=== PATIENT | female | born 1950 | race Caucasian/White ===

== ENCOUNTER 2019-02-27 07:25 | Emergency (ER) | payer MEDICARE, BC ==
--- OUTSIDE RECORDS SUMMARY | 2019-02-27 07:38 | XMS REPORT | Continuity of Care Document ---
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 Benign essential hypertension Corina Jones MD Onset: 11/13/2014 Generalized anxiety disorder Corina Jones MD Onset: 12/13/2014 Hypertensive heart disease without congestive Corina Jones MD Onset: 01/24 heart failure Mixed hyperlipidemia Corina Jones MD Onset: 01/24/2015 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: 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/2015 oropharynx Impacted cerumen Corina Jones MD Onset: 11/28/2015 Psoriasis Corina Jones MD Onset: 11/28/2015 Epigastric pain Corina Jones MD Onset: 07/17/2016 Osteoporosis Corina Jones MD Onset: 02/01/2018 Social History Type Date Description Comments Sex Unknown Tobacco Use Start: Unknown Never Smoked Cigarettes Smoking Status Reviewed: 01/13/19 Never Smoked Cigarettes ETOH Use Occasionally consumes alcohol 4 dr/mo Tobacco Use Start: Unknown Patient has never smoked Allergies, Adverse Reactions, Alerts Description No Known Drug Allergies Medications Active Medications SIG Qnty Indications Ordering Date Provider Triamterene/Hydrochl Take 1 Tablet By 90Tablet Corina Jones, 09/24/2018 orothiazide Mouth Every MD 37.5-25mg Morning Tablets Synthroid Take 1 Tablet By 90Tablet Corina Jones, 09/24/2018 88mcg Mouth Every MD Tablets Morning , 1 Hour Prior To Eating Clobetasol apply small 30gm L40.9 Corina Jones, 02/01/2018 Propionate Emollient amount to MD affected area(s) 0.05% Cream at bedtime as needed Crestor take 1 tablet 12tabs I11.9 Corina Jones, 01/24/2015 10mg Tablets every ana at MD bedtime Fosinopril Sodium Take 1 Tablet By 135tabs Corina Jones, 11/13/2014 Mouth Every Day MD 40mg Tablets In The Morning Immunizations CPT Code Status Date Vaccine Lot # [id number] Given 02/01/2018 Tdap injection [id number] Given 07/08/2007 Tdap injection [id number] Given 09/08/1996 Tetnus Injection Vital Signs Date Vital Result Comment 01/13/2019 10:53am BP Systolic Sitting Left Arm 156 mmHg BP Diastolic Sitting Left Arm 92 mmHg Body Temperature 98.7 F Heart Rate 112 /min Respiratory Rate 18 /min Height 57.5 inches 4'9.50" Weight 132.00 lb BMI (Body Mass Index) 28.1 kg/m2 BSA (Body Surface Area) 1.52 m2 [place] body weight in kilograms 45 kg 08/02/2018 8:27am BP Systolic 146 mmHg BP Diastolic 82 mmHg Body Temperature 98.1 F Heart Rate 93 /min Respiratory Rate 18 /min Height 57.5 inches 4'9.50" Weight 134.00 lb BMI (Body Mass Index) 28.5 kg/m2 BSA (Body Surface Area) 1.53 m2 [place] body weight in kilograms 45 kg O2 % BldC Oximetry 99 % Results Test Date Facility Test Result H/L Range Note TSH Reflex 07/28/2018 [facility] Thyroid Stim 0.85 uIU/mL Normal 0.30-4.20 1 FT4 And/Or [address] Hormone FT3 [place] [address] [phone] Reflex add FT3? Y Reflex add FT4? Y 1 E03.9 Procedures Date Code Description Status 02/01/2018 059738436 Bone Mineral Density Test Completed 2017 [id number] Mammogram Completed 03/13/2015 [id number] Mammogram Completed 05/18/2013 00253514 Colonoscopy Completed Medical Devices Description No Information Available Encounters Type Date Location Provider Dx Diagnosis Office Visit 08/02/2018 [facility] Corina Jones, I11.9 Hypertensive heart 8:30a Luca RUSH MD disease without heart failure E03.9 Hypothyroidism, unspecified M81.0 Age-related osteoporosis w/o current pathological fracture K21.9 Gastro-esophageal reflux disease without esophagitis Assessments Date Code Description Provider 01/13/2019 Z01.419 Encounter for gynecological examination Corina Jones MD (general) (routine) without abnormal findings 01/13/2019 I11.9 Hypertensive heart disease without heart Corina Jones MD failure 08/02/2018 I11.9 Hypertensive heart disease without heart Corina Jones MD failure 08/02/2018 E03.9 Hypothyroidism, unspecified Corina Jones MD 08/02/2018 M81.0 Age-related osteoporosis without current Corina Jones MD pathological fractu 08/02/2018 K21.9 Gastro-esophageal reflux disease without Corina Jones MD esophagitis Plan of Treatment Future Appointment(s):07/01/2019 9:00 am - Corina Jones MD at [facility]01/13/2019 - Corina Jones MDZ01.419 Encounter for gynecological examination (general) (routine) without abnormal findingsComments: PAP AND PELVIC DONE: WE'RE ON A 5 YEAR PLAN.MAMMOGRAM DUE IN APRIL;YOUR ANNUAL WELLNESS VISIT WILL BE IN 6 MO, GET LABS DONE PRIOR.Follow up:6 MO: AWEI11.9 Hypertensive heart disease without heart failureComments:NO CHANGE IN MEDS;CHECK REGULARLY Functional Status Functional Condition Comment Date Status Glasses Active Mental Status Description No Information Available Referrals Description No Information Available
[2019-02-27 07:45] VITALS: BP 178/100
--- NOTE | 2019-02-27 08:08 | UC ---
Eye Complaint HPI - HPI Summary HPI Summary: 68-year-old woman comes in with a chief complaint of right eye irritation for a day. She noticed some dry skin on the lateral aspect of her right eye she put some Vaseline on it and when she woke up this morning she's having yellow crusting in her eye was crusted shut. No upper respiratory tract infection symptoms. No fevers no chills. No complaint of any vision changes. - History of Current Complaint Chief Complaint: UCEye Stated Complaint: RIGHT EYE IRRITATION Time Seen by Provider: 02/27/19 07:55 Pain Intensity: 0 - Allergies/Home Medications Allergies/Adverse Reactions: Allergies Allergy/AdvReac Type Severity Reaction Status Date / Time No Known Allergies Allergy Verified 02/27/19 07:45 Home Medications: Home Medications Fosinopril Sodium 40 mg PO DAILY 02/27/19 [History Confirmed 02/27/19] Hydrochlorothiazide TAB* [Hydrodiuril TAB*] 25 mg PO DAILY 02/27/19 [History Confirmed 02/27/19] Levothyroxine TAB* [Synthroid TAB*] 88 mcg PO DAILY 02/27/19 [History Confirmed 02/27/19] Rosuvastatin (NF) [Crestor (NF)] 10 mg PO WEEKLY 02/27/19 [History Confirmed ] PMH/Surg Hx/FS Hx/Imm Hx Previously Healthy: Yes Endocrine History: Hypothyroidism, Dyslipidemia Cardiovascular History: Hypertension - Surgical History Surgical History: Yes Surgery Procedure, Year, and Place: Neck dissection. oral surgery. R mastectomy - Family History Known Family History: Positive: Non-Contributory - Social History Alcohol Use: Occasionally Substance Use Type: None Smoking Status (MU): Never Smoked Tobacco Review of Systems All Other Systems Reviewed And Are Negative: Yes Constitutional: Positive: Negative Skin: Positive: Other - SEE HPI Eyes: Positive: Drainage, Eye Redness ENT: Positive: Negative Respiratory: Positive: Negative Cardiovascular: Positive: Negative Gastrointestinal: Positive: Negative Motor: Positive: Negative Neurovascular: Positive: Negative Musculoskeletal: Positive: Negative Neurological: Positive: Negative Psychological: Positive: Negative Is Patient Immunocompromised?: No Physical Exam Triage Information Reviewed: Yes Appearance: Well-Appearing, No Pain Distress, Well-Nourished Vital Signs: Initial Vital Signs Temp 98 F 02/27/19 07:41 Pulse 130 02/27/19 07:41 Resp 16 02/27/19 07:41 BP 178/100 02/27/19 07:41 Pulse Ox 100 02/27/19 07:41 Vital Signs Reviewed: Yes Eyes: Positive: Conjunctiva Inflamed, Discharge, Other: - On the lateral aspect of the right I there is inflamed and cracked skin with some flaking. ENT: Negative: Nasal congestion, Nasal drainage Neck: Positive: Supple Respiratory: Positive: No respiratory distress Musculoskeletal: Positive: ROM Intact Neurological: Positive: Alert, Muscle Tone Normal Psychological: Positive: Age Appropriate Behavior Skin: Positive: Other - On the lateral aspect of the right eye the skin is cracked and erythematous with some flaking Eye Complaint Course/Dx - Course Course Of Treatment: Patient has conjunctivitis and will treat that with tobramycin eyedrops. Also it appears to be potential skin yeast infection which we'll treat with Chlortrimazole. Follow-up if not completely improved or any other questions or concerns. - Differential Dx/Diagnosis Provider Diagnosis: Conjunctivitis, Candidal cheilitis Discharge ED - Sign-Out/Discharge Documenting (check all that apply): Patient Departure All imaging exams completed and their final reports reviewed: No Studies - Discharge Plan Condition: Stable Disposition: HOME Prescriptions: Clotrimazole 1% CREAM* [Clotrimazole 1%*] 1 applic TOPICAL BID #1 tube Tobramycin 0.3% OPHTH.GREG* 1 drop RIGHT EYE Q4H #1 btl Patient Education Materials: Skin Yeast Infection (ED), Conjunctivitis (ED) Referrals: Corina Jones MD [Primary Care Provider] - Additional Instructions: FOLLOW UP WITH YOUR DOCTOR IF NOT COMPLETELY IMPROVED. Use the tobramycin drops in the eye for conjunctivitis. Usually Chlortrimazole on the skin surrounding the eye for possible skin yeast infection. GET REEVALUATED SOONER IF NOT IMPROVING OR YOUR CONDITION WORSENS OR ANY QUESTIONS OR CONCERNS - Billing Disposition and Condition Condition: STABLE Disposition: Home
== END 2019-02-27 08:15 | disposition home or self-care (01) ==
LOC: UCCORT 07:25
DX: H10.9 Unspecified conjunctivitis (principal); B37.83 Candidal cheilitis; I10 Essential (primary) hypertension; E03.9 Hypothyroidism, unspecified; Z79.890 Hormone replacement therapy; Z79.899 Other long term (current) drug therapy
CPT/HCPCS: 99202; G0463